=== PATIENT | male | born 1990 | race Caucasian/White ===

== ENCOUNTER 2023-10-18 19:03 | Emergency (ER) | payer OTHER, SELFPAY ==
[2023-10-18 19:05] VITALS: BP 108/57; PULSE 102; RESP 17; TEMP 36.8; O2SAT 99; BMI 27.3
--- NOTE | 2023-10-18 19:16 | CT_ITS ---
STUDY: CT BRAIN WITHOUT CONTRAST REASON FOR EXAM: Male, 32 years old. [place] TECHNIQUE: Transaxial CT imaging of the brain was performed without administration of intravenous contrast material. Individualized dose optimization techniques were used for this CT. COMPARISON: None FINDINGS: Normal calvarium. Normal soft tissues. Normal size ventricles and extra-axial spaces for the patient''s age. Normal white matter tracts of the cerebral hemispheres. Normal basal ganglia and thalami. Normal brainstem. Normal cerebellum. There is no intracranial hemorrhage. There are no findings of an acute ischemic infarction. Left maxillary sinus disease. ASPECTS 10 CT/Brain/Head without Contrast IMPRESSION: There are no acute intracranial findings. Electronically Signed: Flip Fraser MD at 19:51 EDT ,
--- NOTE | 2023-10-18 19:19 | EX.ED.DYSGE1 ---
HPI <HIMANSHU Swain - Last Filed: 10/18/23 21:37> History of Present Illness Chief Complaint: Chest Pain Narrative Narrative: Patient is a 32-year-old male with history of right bundle branch block, who has chest tightness often, who is known to have intermittent chest pains. Patient states today, he lives in [facility], and he was driving to [place] to meet a female for date. Patient states that during his drive, he developed severe chest pains, difficulty breathing, sweating. Patient states that he has been to the ER for this before. He is also concerned that he feels a go there is a ring around his head that is squeezing. He states he is not known to have headaches. Denies any fever chills nausea or vomiting. Patient states that it is left-sided going through to his back. [facility] <HIMANSHU Swain - Last Filed: 10/18/23 21:37> [facility] Medical History (Updated 10/18/23 @ 21:37 by HIMANSHU Swain) Anxiety Right bundle branch block Allergy/AdvReac Type Severity Reaction Status Date / Time No Known Allergies Allergy Verified 10/18/23 19:12 Social History Smoking Status: Never smoker ROS <HIMANSHU Swain - Last Filed: 10/18/23 21:37> ROS ED ROS Narrative Constitutional: Negative for fever, chills, weight loss, weakness Eyes: Negative for vision loss, vision change, double vision ENT: Negative for any sore throat, ear pain, congestion Cardiovascular: Negative for any palpitations. Positive chest pain, tightness Respiratory: Negative for any cough, sputum production, hemoptysis, dyspnea on exertion, orthopnea. Positive for dyspnea Gastrointestinal: Negative for any abdominal pain, nausea, vomiting, diarrhea, constipation, blood in stool, blood in vomit : Negative for any urinary frequency, dysuria, retention, blood in urine Muscle skeletal: Negative for any neck pain, back pain Neurological: Negative for any syncope, dizziness. Positive for headache Skin: Negative for any rashes, itching, abrasions, lacerations Psychiatric: Negative for any depression, anxiety, stress, suicidal ideation, homicidal ideation Hematologic: Negative for any excessive bruising, easy bleeding EXAM <HIMANSHU Swain - Last Filed: 10/18/23 21:37> Physical Exam Narrative Exam Narrative: Vital signs reviewed. Patient does appear anxious, patient is complaining of significant chest pain, head pain. HEET: Head normocephalic atraumatic, TMs clear bilaterally. Posterior pharynx is clear, moist mucous membranes. Nares clear bilaterally. Pupils are equal round reactive to light. Neck: Supple with no lymphadenopathy or tenderness. No signs of meningismus. Cardiac: Tachycardic rate no murmurs gallops or rubs, equal peripheral pulses bilaterally. Respiratory: Lungs clear to auscultation bilaterally. No chest tenderness. Abdomen: Soft, nontender, nondistended. No abdominal bruit or pulsatile masses. No hepatosplenomegaly Extremities: No peripheral edema, no signs of gross trauma or deformity. Active full range of motion of all extremities. Neuro: Cranial nerves II through XII intact, no focal neurological deficits. Skin: Clean dry and intact with no rash, purpura, petechiae, vesicles or pustules. Backs/flank: No CVA tenderness, no midline spinal tenderness, no deformity. Psych: Normal mood and affect. No SI, HI or acute psychosis. Const Vital Signs: 10/18/23 19:05 10/18/23 19:16 10/18/23 20:04 Temperature 98.2 F Temperature Source Oral Pulse Rate 102 H 88 Respiratory Rate 17 13 Blood Pressure 108/57 L 118/73 Blood Pressure Mean 74 88 Pulse Ox 99 98 Oxygen Delivery Method Room Air Room Air Room Air 10/18/23 21:00 Temperature Temperature Source Pulse Rate 92 Respiratory Rate 16 Blood Pressure 116/77 Blood Pressure Mean 90 Pulse Ox 98 Oxygen Delivery Method Room Air Positive well nourished and well developed General Appearance ED: well developed <Dr. Ayana Beasley, - Last Filed: 10/23/23 11:44> Physical Exam Const Vital Signs: 10/18/23 19:05 10/18/23 19:16 10/18/23 20:04 Temperature 98.2 F Temperature Source Oral Pulse Rate 102 H 88 Respiratory Rate 17 13 Blood Pressure 108/57 L 118/73 Blood Pressure Mean 74 88 Pulse Ox 99 98 Oxygen Delivery Method Room Air Room Air Room Air 10/18/23 21:00 Temperature Temperature Source Pulse Rate 92 Respiratory Rate 16 Blood Pressure 116/77 Blood Pressure Mean 90 Pulse Ox 98 Oxygen Delivery Method Room Air MDM <Tho ChristieHIMANSHU haro - Last Filed: 10/18/23 21:37> [facility] Lab Data Labs: Laboratory Results - last 24 hr 10/18/23 19:25 WBC 4.8 RBC 5.18 Hgb 15.2 Hct 44.8 MCV 86.5 MCH 29.3 MCHC 33.9 RDW Std Deviation 39.0 RDW Coeff of Katty 12.2 Plt Count 130 L MPV 9.7 Immature Gran % (Auto) 0.200 Neut % (Auto) 60.8 Lymph % (Auto) 29.1 Routt % (Auto) 9.3 Eos % (Auto) 0.2 Baso % (Auto) 0.4 Absolute Neuts (auto) 2.9 Absolute Lymphs (auto) 1.38 Nucleated RBC % 0 D-Dimer Quant (PE/DVT) < 0.27 L Sodium 142 Potassium 3.3 L Chloride 109 H Carbon Dioxide 23.0 Anion Gap 10 BUN 17 Creatinine 1.37 H Estim Creat Clear Calc 95.92 Est GFR (MDRD) Af Amer 78 Est GFR (MDRD) Non-Af 64 BUN/Creatinine Ratio 12.4 Glucose 116 H Calcium 8.7 Total Bilirubin 0.60 AST 16 ALT 26 Alkaline Phosphatase 63 Troponin I High Sens 4 Total Protein 7.1 Albumin 3.6 Globulin 3.5 Albumin/Globulin Ratio 1.0 Lipase 34 Radiography Diagnostic Testing: Clinical Impression(s) from Imaging Studies Brain CT 10/18/23 19:16 IMPRESSION: There are no acute intracranial findings. Electronically Signed: Flip Fraser MD at 19:51 EDT , Chest X-Ray 10/18/23 19:40 IMPRESSION: No radiographic evidence of acute cardiopulmonary disease. Electronically Signed: Flip Fraser MD at 19:56 EDT , EKG Sinus tachycardia, right bundle branch block: Attestation: I personally reviewed and interpreted this EKG as follows: Comments: Sinus tachycardia, right bundle branch block, rate of 102 bpm, IL interval 196 ms, QRS duration 140 ms, no acute ST elevation, no acute infarct noted. Treatment and Re-Evaluation :: Patient appears to be in no obvious respiratory distress, patient's vital signs are stable. Patient presents to the Emergency Department for left-sided chest pain, headache, shortness of breath. Talking with the patient, it seems the patient has multiple ER visits for similar. Patient states that his pain is a 9 out of 10 on his left side of his chest. The squad gave him 2 nitros, 1 full aspirin. The nitro did not help his pain. I offered the patient some morphine however he states he does not want anything for pain because he states that if he is not in pain that he is not sure if anything is wrong. Patient will be given a full cardiac workup, including a D-dimer. Chest x-ray two-view will be obtained. Patient offered pain medicine however refused at this time. EKG does show his right bundle branch block which he is aware he has. All radiologic examinations were read, reviewed by the emergency department attending. From these reads, a plan of care will be put in place. Patient CBC was unremarkable, D-dimer was negative less than 0.27, chemistries slight hypokalemia 3.3, creatinine 1.37, slightly elevated. Glucose 116. Lipase was negative. This was troponin was 4 which is negative. A repeat will be drawn. Chest x-ray and CT scan the brain were grossly unremarkable. Patient continued to have pain, headache as well as chest pain. Again offered pain medicine however he refused. Patient will be ordered IV Toradol, this is for a muscle skeletal pain. He will receive a second troponin. Patient's second troponin was negative. On reevaluation, the patient was feeling much improved, patient had decreased pain, the patient is talking with his family. I do believe there was an anxiety component. However patient is from [facility] and has doctors up there. At this time, there is no evidence of any ACS, AZ, PE, acute cardiopulmonary pathology. Patient instructed to return for any worsening symptoms. Patient is stable for discharge. <Dr. Ayana Beasley, DO - Last Filed: 10/23/23 11:44> [facility] Lab Data Attestation: I reviewed the patient's lab results. Labs: Laboratory Results - last 24 hr 10/18/23 19:25 WBC 4.8 RBC 5.18 Hgb 15.2 Hct 44.8 MCV 86.5 MCH 29.3 MCHC 33.9 RDW Std Deviation 39.0 RDW Coeff of Katty 12.2 Plt Count 130 L MPV 9.7 Immature Gran % (Auto) 0.200 Neut % (Auto) 60.8 Lymph % (Auto) 29.1 Routt % (Auto) 9.3 Eos % (Auto) 0.2 Baso % (Auto) 0.4 Absolute Neuts (auto) 2.9 Absolute Lymphs (auto) 1.38 Nucleated RBC % 0 D-Dimer Quant (PE/DVT) < 0.27 L Sodium 142 Potassium 3.3 L Chloride 109 H Carbon Dioxide 23.0 Anion Gap 10 BUN 17 Creatinine 1.37 H Estim Creat Clear Calc 95.92 Est GFR (MDRD) Af Amer 78 Est GFR (MDRD) Non-Af 64 BUN/Creatinine Ratio 12.4 Glucose 116 H Calcium 8.7 Total Bilirubin 0.60 AST 16 ALT 26 Alkaline Phosphatase 63 Troponin I High Sens 4 Total Protein 7.1 Albumin 3.6 Globulin 3.5 Albumin/Globulin Ratio 1.0 Lipase 34 Radiography Chest X-Ray - ED: 2 View, Read by ED Physician, Read by Radiologist and No Acute Disease Diagnostic Testing: Clinical Impression(s) from Imaging Studies Brain CT 10/18/23 19:16 IMPRESSION: There are no acute intracranial findings. Electronically Signed: Flip Fraser MD at 19:51 EDT , Chest X-Ray 10/18/23 19:40 IMPRESSION: No radiographic evidence of acute cardiopulmonary disease. Electronically Signed: Flip Fraser MD at 19:56 EDT , Treatment and Re-Evaluation :: Patient appears to be in no obvious respiratory distress, patient's vital signs are stable. Patient presents to the Emergency Department for left-sided chest pain, headache, shortness of breath. Talking with the patient, it seems the patient has multiple ER visits for similar. Patient states that his pain is a 9 out of 10 on his left side of his chest. The squad gave him 2 nitros, 1 full aspirin. The nitro did not help his pain. I offered the patient some morphine however he states he does not want anything for pain because he states that if he is not in pain that he is not sure if anything is wrong. Patient will be given a full cardiac workup, including a D-dimer. Chest x-ray two-view will be obtained. Patient offered pain medicine however refused at this time. EKG does show his right bundle branch block which he is aware he has. All radiologic examinations were read, reviewed by the emergency department attending. From these reads, a plan of care will be put in place. Patient CBC was unremarkable, D-dimer was negative less than 0.27, chemistries slight hypokalemia 3.3, creatinine 1.37, slightly elevated. Glucose 116. Lipase was negative. This was troponin was 4 which is negative. A repeat will be drawn. Chest x-ray and CT scan the brain were grossly unremarkable. Patient continued to have pain, headache as well as chest pain. Again offered pain medicine however he refused. Patient will be ordered IV Toradol, this is for a muscle skeletal pain. He will receive a second troponin. Patient's second troponin was negative. On reevaluation, the patient was feeling much improved, patient had decreased pain, the patient is talking with his family. I do believe there was an anxiety component. However patient is from [facility] and has doctors up there. At this time, there is no evidence of any ACS, AZ, PE, acute cardiopulmonary pathology. Patient instructed to return for any worsening symptoms. Patient is stable for discharge. I have personally performed a face to face assessment of the patient and have reviewed the BATSHEVA Note. I performed a substantive portion of the visit including all aspects of the following. My garcia findings include: History is Patient is a 32-year-old male with history of multiple ER visits for chest pain presenting with left-sided chest pain, shortness of breath, headache and and also an episode of numbness and spasm of his hands. Upon arrival patient is tachycardic. Physical exam is otherwise quite benign. Pain is reproducible direct palpation. Given his associated shortness of breath and tachycardia D-dimer is obtained which is negative. Lower suspicion otherwise for PE and I do not think a CT is indicated. Cardiopulmonary workup is grossly normal. Given that patient is also complained of severe headache did obtain a head CT which does not show any acute intracranial hemorrhage, signs of subarachnoid hemorrhage or space-occupying lesion. Patient ultimately agrees to receiving Toradol in the ER with improvement of his pain. Family is now at the bedside. Discussed that his workup is largely negative. Do suspect there is a component of anxiety. As he has had outpatient cardiology follow-up suggested possible follow-up with pulmonology. Patient courage follow-up with his primary care doctor. Given return precautions. At this time I feel that he does not require admission for further inpatient evaluation of his symptoms. Blood pressure is normal and he is equal pulses in all extremities. Low suspicion for acute aortic dissection. Other additions or changes: [None] Discharge Plan Triage Chief Complaint: Chest Pain ED Midlevel Provider: Tho Moody ED Provider: Ayana Beasley Dx/Rx/DC Orders Clinical Impression: Acute chest wall pain, Chest pain, Headache Instructions: ED Chest Pain, Noncardiac, ED Pain, Acute, Uncertain Cause Primary Care Provider: Akhil Calvo Referrals: Akhil Calvo, [Primary Care Provider] - Activity Restrictions/Additional Instructions: Please follow-up outpatient. You had a negative cardiac workup today. There is no evidence to suspect any pulmonary embolus. Your CT scan of the brain was normal. Please follow-up outpatient. Print Language: Portuguese Disposition Disposition: Home, Self Care Discharge Date/Time: 10/18/23 22:15
[2023-10-18 19:33] LABS: Absolute Lymphocyte Count 1.38 X10^3/uL (0.83-4.51); Absolute Neutrophil Count 2.9 X10^3/uL (2.0-7.7); Basophil# 0.02 X10^3/uL; Basophil% 0.4 % (0-1); Eosinophil# 0.01 X10^3/uL; Eosinophils% 0.2 % (0-5); Hematocrit 44.8 % (40-54); Hemoglobin 15.2 g/dL (13.0-16.5); Lymphocyte # 1.38 X10^3/ul (0.83-4.51); Lymphocyte % 29.1 % (19-41); Mean Corp Hgb Conc 33.9 g/dL (32-36); Mean Corpuscular Hgb 29.3 pg (27.0-32.0); Mean Corpuscular Volume 86.5 fL (80-94); Mean Platelet Vol. 9.7 fl (6.2-12.0); Monocyte# 0.44 X10^3/uL; Monocyte% 9.3 % (0-10); NRBC Flagged by Analyzer 0 % (0-5); Neutrophil # 2.89 X10^3/uL (2.7-7.7); Neutrophil % 60.8 % (47-70); Platelet Count 130 K/mm3 (150-450); RBC Distribution Width CV 12.2 % (11.6-14.6); Red Blood Count 5.18 M/mm3 (4.6-6.2); White Blood Count 4.8 K/mm3 (4.4-11.0)
[2023-10-18] MEDS: 0.9% Normal Saline (1000mL) 1,000 ML 999 ML IV (19:37)
--- NOTE | 2023-10-18 19:40 | RAD_ITS ---
EXAM: XR CHEST, 2 VIEWS CLINICAL INDICATION: chest pain TECHNIQUE: Frontal and lateral views of the chest. COMPARISON: No relevant prior studies available. FINDINGS: LUNGS AND PLEURAL SPACES: Unremarkable. No consolidation or edema. No pneumothorax. No effusion. HEART: Unremarkable. Cardiac silhouette not enlarged. MEDIASTINUM: Central airways and mediastinal contour are unremarkable. BONES/JOINTS: Unremarkable. No acute fracture. SOFT TISSUES: Unremarkable. RAD/Chest PA and Lateral IMPRESSION: No radiographic evidence of acute cardiopulmonary disease. Electronically Signed: Flip Fraser MD at 19:56 EDT ,
[2023-10-18 19:50] LABS: AST(SGOT) 16 U/L (15-37); Alanine Aminotransfer ALT/SGPT 26 U/L (16-61); Albumin, Serum 3.6 g/dL (3.2-5.0); Alkaline Phosphatase 63 U/L (45-117); Anion Gap 10 (5-15); BUN 17 mg/dL (7-18); BUN/Creat Ratio 12.4 RATIO (10-20); Calcium,Total 8.7 mg/dL (8.5-10.1); Chloride 109 mmol/L (98-107); Creatinine, Serum 1.37 mg/dL (0.70-1.30); EST Glomerular Filtration Rate 64 mL/min (>60); Est Glom Filt Rate - Afr Amer 78 mL/min (>60); Estimated Creatinine Clearance 95.92 ml/min; Globulin 3.5 g/dL (2.2-4.2); Glucose 116 mg/dL (74-106); Lipase 34 U/L (13-75); Potassium 3.3 mmol/L (3.5-5.1); Protein, Total 7.1 g/dL (6.4-8.2); Sodium Level 142 mmol/L (136-145); Troponin-I HS (w/2H Reflex) 4 pg/mL (3.0-78.0)
[2023-10-18 20:04] VITALS: BP 118/73; PULSE 88; RESP 13; O2SAT 98
[2023-10-18 20:09] LABS: D-Dimer Quantitative (DVT/PE) < 0.27 FEU/ug/m (0.27-0.49)
[2023-10-18 21:00] VITALS: BP 116/77; PULSE 92; RESP 16; O2SAT 98
[2023-10-18] MEDS: Ketorolac 15 MG/ML Vial IV (21:15)
[2023-10-18 21:27] LABS: Reflex Troponin-HS? (from REC) Y
[2023-10-18 21:59] LABS: Troponin-I HS 4 pg/mL (3.0-78.0)
[2023-10-18 22:10] VITALS: BP 122/83; PULSE 89; RESP 17; TEMP 36.6; O2SAT 98
== END 2023-10-18 22:15 | disposition home or self-care (01) ==
PROVIDERS: Nurse Practitioner; Emergency Provider Emergency Medicine; PCP Student in an Organized Health Care Education/Training Program; Visit Provider Emergency Medicine
DX: R07.89 Other chest pain (principal); R51.9 Headache, unspecified; R06.02 Shortness of breath; I45.10 Unspecified right bundle-branch block
CPT/HCPCS: 70450; 71046; 80053; 83690; 84484; 85025; 85379; 93005; 96374; 99284; J7030; A4216